=== PATIENT | male | born 1945 | race Hispanic/Latino ===

== ENCOUNTER 2017-07-30 11:17 | Day surgery (SDC) | payer MEDICARE ==
[~2017-07-30 11:17] MED LIST: AK-Dilate ONE; IOPIDINE ONE; IOPIDINE OS ONE; MYDRIACYL ONE
[2017-07-30] MEDS ORDERED: AK-Dilate OS ONE (11:41)
[2017-07-30] MEDS ORDERED: IOPIDINE OS ONE ×2 (11:41→12:50)
[2017-07-30] MEDS ORDERED: MYDRIACYL OS ONE (11:41)
[2017-07-30 14:23] VITALS: BP 153/63
== END 2017-07-30 12:52 | disposition home or self-care (01) ==
LOC: OR 11:17
PROVIDERS: ATTEND Ophthalmology
DX: H26.492 Other secondary cataract, left eye (principal); E78.00 Pure hypercholesterolemia, unspecified; Z95.2 Presence of prosthetic heart valve; Z87.891 Personal history of nicotine dependence; Z79.01 Long term (current) use of anticoagulants

== ENCOUNTER 2018-05-01 11:09 | Day surgery (SDC) | payer MEDICARE ==
[~2018-05-01 11:09] MED LIST changes: -AK-Dilate ONE; -IOPIDINE OS ONE; +NEOFRIN ONE
[2018-05-01] MEDS ORDERED: NEOFRIN OD ONE (11:43)
[2018-05-01] MEDS ORDERED: MYDRIACYL OD ONE (11:43)
[2018-05-01] MEDS ORDERED: IOPIDINE OD ONE ×2 (11:43→12:16)
[2018-05-01 12:07] VITALS: BP 146/64
== END 2018-05-01 12:20 | disposition home or self-care (01) ==
LOC: OR 11:09
PROVIDERS: ATTEND Specialist
DX: H26.491 Other secondary cataract, right eye (principal); E78.00 Pure hypercholesterolemia, unspecified; N40.0 Benign prostatic hyperplasia without lower urinary tract symptoms; Z79.899 Other long term (current) drug therapy; Z98.42 Cataract extraction status, left eye; Z98.41 Cataract extraction status, right eye; Z95.2 Presence of prosthetic heart valve; Z87.891 Personal history of nicotine dependence; Z98.890 Other specified postprocedural states